=== PATIENT | female | born 1985 | race Caucasian/White ===

== ENCOUNTER 2020-03-04 13:00 | Day surgery (SDC) | payer BC, OTHER ==
[2020-03-04] VITALS (9 sets, daily range): BP systolic 137–152; BP diastolic 74–104
[~2020-03-04] VITALS: Ht 172.7 cm; Wt 77.2 kg
--- NOTE | 2020-03-04 13:50 | ED GI ---
General Chief Complaint: General Problems/Pain Stated Complaint: FOOD BOLUS Source of Information: Patient Exam Limitations: No Limitations History of Present Illness Date Seen by Provider: Mar 04, 2020 Time Seen by Provider: 13:47 Initial Comments ER by private vehicle with reports of sensation of food stuck in her throat. This began after eating a chicken sandwich last night. She is able to get liquids down now but no food. Timing/Duration: 1-2 Days Severity/Quality: Cramping Radiation: No Radiation Activities at Onset: None Associated Symptoms: Denies Symptoms Allergies and Home Medications Patient Home Medication List Home Medication List Reviewed: Yes Review of Systems Review of Systems Constitutional: see HPI EENTM: No Symptoms Reported Respiratory: No Symptoms Reported Cardiovascular: No Symptoms Reported Gastrointestinal: See HPI Genitourinary: No Symptoms Reported Musculoskeletal: no symptoms reported Skin: no symptoms reported Psychiatric/Neurological: No Symptoms Reported Endocrine: No Symptoms Reported Hematologic/Lymphatic: No Symptoms Reported Physical Exam Vital Signs Capillary Refill : Height/Weight/BMI Height: '" Weight: lbs. oz. kg; BMI Method: General Appearance: WD/WN, no apparent distress HEENT: PERRL/EOMI, normal ENT inspection Respiratory: no respiratory distress, no accessory muscle use Gastrointestinal: normal bowel sounds, non tender, soft Extremities: normal range of motion, non-tender Neurologic/Psychiatric: alert, normal mood/affect, oriented x 3 Skin: normal color, warm/dry Departure Impression Primary Impression: Food impaction of esophagus Disposition: 01 HOME, SELF-CARE Condition: Stable Departure-Patient Inst. Referrals: NO,LOCAL PHYSICIAN (PCP/Family) Primary Care Physician ALHAJI MO APRN Mar 04, 2020 13:50
--- NOTE | 2020-03-04 14:24 | Consultation - Surgery ---
SHAY KUNZ MED STUDENT 03/04/20 1423: History of Present Illness History of Present Illness Patient Consulted On(alexandrea/time) 03/04/20 14:16 Date Seen by Provider: Mar 04, 2020 Time Seen by Provider: 14:00 Reason for Visit: Food bolus stuck in throat History of Present Illness Pt is a 34yo female consulted for complaints of food being stuck in her throat. Last night the pt was eating a chicken sandwich when she took a bite that didn't feel like it passed all the way through, and lasting until today which led to her coming to the ED. She says that this has happened multiple times for the past few years, but never to the point where it remained overnight. She has had associated burning pain just above her sternum. On exam, she says that it actua lly feels a lot better now and does not feel the stuck food or pain. Denies N/V, change in bowel habits. Allergies and Home Medications Allergies Coded Allergies: No Known Drug Allergies (Unverified , 03/04/20) Patient Home Medication List Home Medication List Reviewed: Yes Past Ysmczot-Itbjgu-Meeblm Hx Patient Social History Alcohol Use: Rarely Uses (3-6 drinks/wk) Recreational Drug Use: No Smoking Status: Former Smoker (quit years ago, socially/very light amounts) Type Used: Cigarettes Recent Foreign Travel: No Contact w/Someone Who Travel: No Recent Infectious Disease Expo: No Recent Hopitalizations: No Surgeries History of Surgeries: Yes Surgeries: Eye Surgery (lasix) Respiratory History of Respiratory Disorde: No Cardiovascular Cardiac Disorders: Hypertension Neurological History of Neurological Disord: No Genitourinary History of Genitourinary Disor: No Gastrointestinal History of Gastrointestinal Di: No Musculoskeletal History of Musculoskeletal Dis: No Endocrine History of Endocrine Disorders: No HEENT History of HEENT Disorders: No Cancer History of Cancer: No Psychosocial History of Psychiatric Problem: No Integumentary History of Skin or Integumenta: No Family Medical History Significant Family History: No Pertinent Family Hx Review of Systems-General Constitutional: no symptoms reported EENTM: no symptoms reported Respiratory: no symptoms reported Cardiovascular: no symptoms reported Gastrointestinal: no symptoms reported Genitourinary: no symptoms reported Musculoskeletal: no symptoms reported Skin: no symptoms reported Psychiatric/Neurological: No Symptoms Reported Other Pt states that her symptoms of burning pain/mass sensation in throat has gotten better Physical Exam-General Problems Physical Exam Vital Signs Vital Signs - First Documented 03/04/20 13:23 Temp 37.3 Pulse 98 Resp 18 B/P (MAP) 147/109 (122) Pulse Ox 99 O2 Delivery Room Air Capillary Refill : Greater Than 3 Seconds General Appearance: WD/WN, no apparent distress HEENT: PERRL/EOMI Neck: non-tender, full range of motion, supple, normal inspection Respiratory: chest non-tender, lungs clear, normal breath sounds, no respiratory distress, no accessory muscle use Cardiovascular: normal peripheral pulses, regular rate, rhythm, no edema, no gallop, no JVD, no murmur Gastrointestinal: normal bowel sounds, non tender, soft Rectal: deferred Back: normal inspection, no CVA tenderness, no vertebral tenderness Extremities: normal range of motion, non-tender, normal inspection, no pedal edema, normal capillary refill Neurologic/Psychiatric: no motor/sensory deficits, alert, normal mood/affect, oriented x 3 Skin: normal color, warm/dry Lymphatic: no adenopathy Assessment/Plan Assessment/Plan Admission Diagonsis Food bolus Assessment/Plan Recurrent dysphagia HTN Plan for EGD to evaluate recurrent dysphagia, NPO status JOHNY KRAUS DO 03/04/20 1459: History of Present Illness History of Present Illness History of Present Illness CC: food bolus 34 year old female food bolus (Chicken) stuck in throat. Cant drink liquids well, having to throw up secretions. Has had issues for 5 years never had to scope. Thinks it may have passed now but not completely sure. Solid foods seem to get stuck. Liquids go down. Denies fever sweats chills shortness of breath or chest pain. Allergies and Home Medications Allergies Coded Allergies: No Known Drug Allergies (Unverified , 03/04/20) Patient Home Medication List Home Medication List Reviewed: Yes Past Fecrtlh-Exmpus-Kymylj Hx Patient Social History Alcohol Use: Rarely Uses (3-6 drinks/wk) Type Used: Cigarettes Recent Hopitalizations: No Surgeries History of Surgeries: Yes Surgeries: Eye Surgery (lasix) Respiratory History of Respiratory Disorde: No Cardiovascular Cardiac Disorders: Hypertension Neurological History of Neurological Disord: No Genitourinary History of Genitourinary Disor: No Gastrointestinal History of Gastrointestinal Di: No Musculoskeletal History of Musculoskeletal Dis: No Endocrine History of Endocrine Disorders: No HEENT History of HEENT Disorders: No Cancer History of Cancer: No Psychosocial History of Psychiatric Problem: No Integumentary History of Skin or Integumenta: No Family Medical History Significant Family History: No Pertinent Family Hx Review of Systems-General Constitutional: No chills, No diaphoresis EENTM: No blurred vision, No double vision Respiratory: No cough, No dyspnea on exertion Cardiovascular: No chest pain, No edema Gastrointestinal: No abdominal pain; dysphagia, nausea, vomiting Genitourinary: No decreased output, No discharge Musculoskeletal: No gout, No joint pain Skin: No change in color, No change in hair/nails Psychiatric/Neurological: Denies Depressed, Denies Emotional Problems All Other Systems Reviewed Negative Unless Noted: Yes (Negative excepted noted.) Physical Exam-General Problems Physical Exam General Appearance: WD/WN, no apparent distress HEENT: PERRL/EOMI, normal ENT inspection Neck: non-tender, full range of motion Respiratory: chest non-tender, no respiratory distress, no accessory muscle use Cardiovascular: regular rate, rhythm Gastrointestinal: non tender, soft Rectal: deferred Back: normal inspection, no CVA tenderness, no vertebral tenderness Extremities: normal range of motion, normal inspection, no pedal edema Neurologic/Psychiatric: no motor/sensory deficits, alert, normal mood/affect, oriented x 3 Skin: normal color, warm/dry Lymphatic: no adenopathy Assessment/Plan Assessment/Plan Assessment/Plan dysphagia food bolus nausea vomiting htn Discussed risks and benefits of egd all other indicated procedures she understands and wishes to proceed. To endo for procedure Supervisory-Addendum Brief Verification & Attestation Participated in pt care: history, MDM, physical Personally performed: exam, history, MDM, supervision of care Care discussed with: Medical Student Procedures: n/a Results interpretation: Verified all documentation Verification and Attestation of Medical Student E/M Service A medical student performed and documented this service in my presence. I reviewed and verified all information documented by the medical student and made modifications to such information, when appropriate. I personally performed the physical exam and medical decision making. Johny Kraus, Mar 04, 2020,14:59 SHAY KUNZ MED STUDENT Mar 04, 2020 14:23 JOHNY KRAUS DO Mar 04, 2020 14:59
[2020-03-04] MEDS ORDERED: proPOfol 200 MG/20 ML (DIPRIVAN) VIAL IV ONE (14:44)
[2020-03-04] MEDS ORDERED: MIDAZOLAM 2 MG/2 ML (VERSED) VIAL ONE (14:44)
[2020-03-04] MEDS ORDERED: LACTATED RINGERS 1,000 ML IV ONE (14:45)
[2020-03-04] MEDS ORDERED: PANT40TA2 PO (15:08)
[2020-03-04] MEDS ORDERED: SUCR1TAB36 PO (15:09)
--- NOTE | 2020-03-04 15:10 | Discharge Inst-Simple/Standard ---
Discharge Inst-Standard Discharge Medications New, Converted or Re-Newed RX: RX on Chart Patient Instructions/Follow Up Plan of Care/Instructions/FU: 2-3 weeks Nayana Activity as Tolerated: Yes Discharge Diet: Soft Diet JOHNY BERMAN DO Mar 04, 2020 15:10
--- NOTE | 2020-03-04 15:12 | Progress Note-Post Operative ---
Post-Operative Progess Note Surgeon (s)/Longwall Headgate Operator (s) Surgeon JOHNY BERMAN DO [employer] Headgate Operator: na Pre-Operative Diagnosis dysphagia food bolus Post-Operative Diagnosis reflux esophagitis Procedure & Operative Findings Date of Procedure 03/04/20 Procedure Performed/Findings egd c biopsy ge Anesthesia Type per comb machine operator Estimated Blood Loss Estimated blood loss (mL): scant Specimens/Packing Specimens Removed ge JOHNY BERMAN DO Mar 04, 2020 15:12
--- NOTE | 2020-03-04 15:21 | Anesthesia-General Post-Op ---
MAC Patient Condition Mental Status/LOC: Same as Preop Cardiovascular: Satisfactory Nausea/Vomiting: Absent Respiratory: Satisfactory Pain: Controlled Complications: Absent Post Op Complications Complications None Follow Up Care/Instructions Patient Instructions None needed. Anesthesiology Discharge Order Discharge Order Patient is doing well, no complaints, stable vital signs, no apparent adverse anesthesia problems. No complications reported per nursing. TRISHA ANTHONY CRNA Mar 04, 2020 15:21
[2020-03-04] MEDS ORDERED: HURRICAINE EXT TUBE (BENZOCAINE) XX PRN (15:30)
[2020-03-04] MEDS ORDERED: LACTATED RINGERS 1,000 ML IV PRN (15:30)
--- NOTE | 2020-03-05 00:50 | OPERATIVE REPORT ---
DATE OF SERVICE: 03/04/2020 PREOPERATIVE DIAGNOSIS: Dysphagia, food bolus. POSTOPERATIVE DIAGNOSIS: Reflux esophagitis. PROCEDURE: EGD with biopsy of the GE junction. SURGEON: Johny Kraus DO ANESTHESIA: Per CONVEYOR SYSTEM OPERATOR. ESTIMATED BLOOD LOSS: Scant. COMPLICATIONS: None. INDICATIONS: The patient is a 34-year-old female who for the last 5 years, having problems with dysphagia and food boluses, never had an EGD performed. She understands the risks and benefits of procedure. She was eating chicken sandwich last night, got it stuck. She thinks it might have gone through, but still having some symptoms. She understands risks and benefits of procedure and wished to proceed. Consent was signed in the chart. DESCRIPTION OF PROCEDURE: The patient was taken to the endoscopy suite, placed in the left lateral recumbent position. Timeout was performed. Scope was inserted in mouth, down the esophagus and noting some slight narrowing and irritation of the GE junction. Scope was inserted into the stomach and into the duodenum without difficulty. No polyps, masses or ulcerations within the duodenum. Scope was slowly retracted back into the stomach where it was further insufflated. No polyps, masses or ulcerations. Scope was retroflexed noting no other pathology. Scope was returned to its normal position, slowly withdrawn to distal esophagus, changes of reflux esophagitis were present. Biopsy of the GE junction was obtained. Scope was then slowly retracted back. The patient tolerated procedure well without any complications. She was taken to recovery room in stable condition. RECOMMENDATIONS: The patient was started on Carafate 1 gram four times a day and Protonix 40 mg daily. We will have her follow up in the office in 2 to 3 weeks and go over pathology and see how her symptoms are doing. We will consider repeating endoscopy at a later date to reevaluate if still symptomatic, may benefit from dilatation. Job ID: [id number] DocumentID: [id number] Dictated Date: 03/04/2020 15:14:58 Owner Date: 03/04/2020 19:37:41 Dictated By: JOHNY KRAUS DO
== END 2020-03-04 16:15 | disposition home or self-care (01) ==
LOC: ER 13:03 → SDC 14:29 → ER 16:15
PROVIDERS: ATTEND Surgery
DX: K21.00 Gastro-esophageal reflux disease with esophagitis, without bleeding (principal); T18.128A Food in esophagus causing other injury, initial encounter
CPT/HCPCS: 84703; 88305; 88312

== ENCOUNTER → 2020-05-28 | Outpatient (CLI) | payer BC ==
[~2020-05-28] MED LIST: BARIUM for suspension 96% w/w (Vanilla Silq Medium Density) PO ONE; BARIUM for suspension 98% w/w (Vanilla Silq High Density) PO ONE; PANT40TA2 PO; SUCR1TAB36 PO
--- NOTE | 2020-05-28 09:49 | Diagnostic Imaging Report ---
INDICATION: Dysphagia. TECHNIQUE: The patient ingested effervescent crystals as well as thin and thick barium and imaging over the esophagus was performed in multiple obliquities. A total of 1 minute and 7 seconds of fluoroscopic time was utilized. FINDINGS: The preliminary radiograph of the chest is unremarkable. The esophagus has a smooth contour. No mass or stricture is identified. No hiatal hernia or gastroesophageal reflux was demonstrated. IMPRESSION: Unremarkable esophagram. Dictated by: Dictated on workstation # [id number]
== END ==
LOC: RAD 08:39
PROVIDERS: ATTEND Surgery
DX: R13.10 Dysphagia, unspecified (principal)
CPT/HCPCS: 74220